=== PATIENT | female | born 1940 | race African-American/Black ===

== ENCOUNTER 2019-06-03 03:31 | Inpatient (IN) | payer MEDICARE, OTHER ==
[2019-06-03] MEDS ORDERED: cefTRIAXone\\ROCEPHIN 2 GM VIAL ONE (04:19)
[2019-06-03] MEDS ORDERED: Azithromycin 500 MG VIAL ONE (04:19)
[2019-06-03 04:40] LABS: Hemoglobin 14.4 g/dL (12.0-16.0); Mean Corpuscular HGB CONC 33.3 g/dL (32.0-36.0); Mean Corpuscular Hemoglobin 28.5 pg (27.0-31.0); Mean Corpuscular Volume 85.7 fL (78.0-98.0); RBC Distribution Width 13.4 % (11.5-14.5); Red Blood Cell (RBC) Count 5.04 mill/uL (4.20-5.40); White Blood Cell (WBC) Count 11.5 thou/uL (4.8-10.8)
[2019-06-03 04:44] LABS: Bacteria/HPF None Seen HPF (None Seen); Bilirubin Negative (Negative); Blood, Urine 2+ (Negative); Clarity Clear (Clear); Glucose, Urine (Dipstick) Normal (Negative); Leukocyte Negative Leu/uL (Negative); Nitrite Negative (Negative); Protein, Urine (Dipstick) 600 mg/dL (Neg-Trace); RBC/HPF 0-3 HPF (0-3); Squamous Epithelial 0-3 HPF (0-3); Urobilinogen Normal mg/dL (Less than 2); WBC/HPF 0-3 HPF (0-3)
[2019-06-03 04:54] LABS: #Eosinphils 0.1 thou/uL (0.0-0.7); #Lymphocytes 0.9 thou/uL (1.20-3.40); #Monocytes 0.7 thou/uL (0.11-0.59); #Neutrophils 9.8 thou/uL (1.40-6.50); %Eosinophils 0.9 % (0.0-10.0); %Lymphocytes 8.2 % (21.0-51.0); %Monocytes 6.1 % (0.0-10.0); %Neutrophils 84.7 % (42.0-75.0); Large Platelets SLIGHT; MDiff Complete? YES; Mean Platelet Volume 12.1 fL (7.4-10.4); Platelet Count 159 thou/uL (130-400); Platelet Morphology Comment Appears Adequate
[2019-06-03 04:57] LABS: ALT (SGPT) 7 U/L (8-55); AST (SGOT) 14 U/L (5-34); Alkaline Phosphatase 112 U/L (40-110); Anion Gap 17 mmol/L (10-20); BUN (Urea Nitrogen) 15 mg/dL (9.8-20.1); Bilirubin, Total 0.6 mg/dL (0.2-1.2); Calc. Creatinine Clearance 0 mL/min (70-130); Carbon Dioxide 22 mmol/L (23-31); Chloride 103 mmol/L (98-107); Estimated GFR-MDRD 43; Globulin 5.1 g/dL (2.4-3.5); Glucose 128 mg/dL (83-110); Potassium 3.7 mmol/L (3.5-5.1); Protein, Total 9.1 g/dL (6.0-8.3); Sodium 138 mmol/L (136-145)
[2019-06-03] MEDS ORDERED: Nitroglycerin 2% Ointment 1 INCH/1 GM Packet ONE (05:19)
[2019-06-03] MEDS ORDERED: Furosemide 40 MG/4 ML VIAL ONE (05:19)
[2019-06-03] MEDS ORDERED: Ondansetron PF 4 MG/2 ML Vial ONE (05:19)
[2019-06-03] MEDS ORDERED: Ondansetron ODT 4 MG TAB PO PRN (05:43)
--- NOTE | 2019-06-03 06:56 | HP ---
PRIMARY CARE PHYSICIAN: Unknown. CHIEF COMPLAINT: Nausea, vomiting, malaise, cough times days. HISTORY OF PRESENT ILLNESS: This is a 79-year-old obese female with past medical history of hypertension and possible CHF, who was brought in to [facility] by family members for several-day history of multifactorial complaints including intractable nausea and vomiting, malaise, cough with some shortness of breath and feelings of unwell, prompting evaluation. The patient reports that her 2-1/2-year-old grandson has been ill recently. She notes some generalized weakness, but denies any headaches, earaches, sore throat, or productive cough. She did not receive her influenza vaccine this season. She denies any anginal complaints. In the emergency room, she was reported to have an initial white blood cell count of 11.5, lactate of 2.8, T-max 100.6, and appropriate oxygenation on room air, but notably desaturating to high 80s while asleep and placed on oxygen nasal cannula. Chest x-ray was read by the ER physician as concerning for pneumonia and possible pulmonary edema. IV fluid bolus was not administered due to concerns for volume overload and the patient was administered IV Lasix, IV Zithromax, IV Rocephin, and topical nitroglycerin paste. Influenza antigen screen was negative. At bedside, the patient is awake and alert. She reports feeling better. Nausea has resolved. She does not feel overwhelmingly short of breath. Continues to have coughing episodes. Much more detailed history cannot be obtained from the patient. The patient's daughter, Katalina was also called via telephone to obtain limited collateral history. PAST MEDICAL HISTORY: Morbid obesity, hypertension, possible CHF. PAST SURGICAL HISTORY: Cholecystectomy and solitary nephrectomy. SOCIAL HISTORY: The patient admits to nicotine dependence, smoking one pack every 3 days. She denies alcohol or illicit drug use. She uses an assistive device for ambulation. Denies any recent falls. ALLERGIES: NONE REPORTED. REVIEW OF SYSTEMS: Pertinent positives as per HPI. Remainder of review of systems negative. MEDICATIONS: Reviewed as per admission medication reconciliation. FAMILY HISTORY: The patient denies any chronic medical comorbidities in family members. PHYSICAL EXAMINATION: VITAL SIGNS: Temperature maximum 100.6, pulse 70s to 80s, sinus rhythm. Blood pressure, initially 198/96 with repeat blood pressure is pending. Oxygen saturation 88% on room air, 94% to 95% on 2 L nasal cannula. Respirations 20-24 breaths, labored. GENERAL APPEARANCE: This is a morbidly obese elderly female who is awake, alert , oriented, lying in awkward lateral decubitus position, speaking in full appropriate sentences. HEENT: Normocephalic, atraumatic. No facial asymmetry. Pupils are equally round. Extraocular muscles are intact. NECK: Supple. CARDIOVASCULAR: S1, S2. Regular rate and rhythm. No harsh murmurs. No reproducible chest wall tenderness to palpation. LUNGS: Limited evaluation due to the patient's body habitus and positioning. There is increased work of breathing noted with tachypnea. Decreased air entry on bilateral anterior auscultation with coarse breath sounds. No expiratory wheezing noted. ABDOMEN: Soft, nontender, nondistended. No peritoneal signs. EXTREMITIES: 1+ bilateral lower extremity pitting edema noted. No cyanosis or deformities noted. SKIN: Warm to touch without rash, pallor, or abrasion. LABORATORY DATA: WBC 11.5, H and H 14.4/43.2, platelets 159. Sodium 138, potassium 3.7, chloride 103, bicarb 22, glucose 128, BUN and creatinine 15/1.42, GFR 43, AST 14, ALT 7. Initial troponin I was negative x1. BNP was elevated at 853.3. Total protein 9.1, albumin 4.0. Influenza antigens reported negative. IMAGING: One-view chest x-ray, await official read, suggestive of pulmonary edema and possible pneumonia. ASSESSMENT: 1. Acute respiratory failure with hypoxia secondary to pneumonia and possible pulmonary edema. The patient will be admitted as inpatient status and placed on oxygen nasal cannula. We will continue empiric treatment for community-acquired pneumonia and IV Lasix 40 mg twice daily and nebulized bronchodilators and supportive therapies with p.r.n. antitussive agents, and monitor for the patient 's symptom improvement. Influenza antigen negative, but we will check RPP for viral etiology. Monitor for overall clinical response and wean oxygen nasal canula as tolerated. 2. Suspected community-acquired pneumonia. Continue IV Rocephin and Zithromax. Check RPP to evaluate for any underlying viral pathogen. 3. Pulmonary edema, possibly cardiogenic etiology. Continue IV Lasix 40 mg b.i.d. and monitor renal function in the setting of known solitary nephrectomy. 4. Chronic kidney disease, 3, baseline secondary to prior nephrectomy. 5. History of nephrectomy. 6. Morbid obesity, unspecified BMI. 7. Nicotine dependence. The patient reviewed will require cessation counseling. 8. Uncontrolled hypertension, possibly due to multifactorial etiologies. The patient was administered nitroglycerin paste in the ER. Monitor serial cardiac biomarkers and blood pressure. 9. Lactic acidosis of unspecified etiology. Possibly secondary to pneumonia or tissue hypoxia. Trend serial lactic acid level. Deep venous thrombosis prophylaxis: Low-molecular weight heparin. Check a.m. labs, 06/04/2019. Code status: Full code. Disposition: The patient will be admitted as inpatient status and placed on telemetry monitoring. Job ID: [id number]
--- NOTE | 2019-06-03 07:39 | RAD ---
XR Chest 1 View Portable History: Vomiting and coughing. Pain. Comparison: Radiograph 2008 Findings: Heart size is enlarged. There is a abnormal round opacity projecting of the left upper lobe expected location anterior left fourth rib. Mild portal venous congestion. The aortic contour is ectatic. Impression: 1. Abnormal high density mass projecting over the left upper lobe expected location anterior left fou rth rib measuring 3.[address] chest recommended. 2. Cardiomegaly and mild pulmonary venous congestion. 3. Mild ectasia descending thoracic aorta.
[2019-06-03 07:49] VITALS: BMI 38.0
[2019-06-03] MEDS: Acetaminophen 325 MG TAB PO PRN ×2 (08:12→19:09)
[2019-06-03] MEDS: Furosemide 40 MG/4 ML VIAL IVP SCH ×2 (08:13→19:14)
[2019-06-03] MEDS: Enoxaparin Sodium 40 MG/0.4 ML SYRINGE SC SCH (08:13)
[2019-06-03] MEDS: Ondansetron PF 4 MG/2 ML Vial IVP PRN (08:13)
[2019-06-03 08:14] LABS: Troponin I Less than 0.010 ng/mL (< 0.028)
[2019-06-03] MEDS: Guaifenesin DM 100-10/5 ML UDCUP PO PRN ×3 (08:16→19:11)
[2019-06-03 10:54] LABS: Troponin I 0.034 ng/mL (< 0.028)
[2019-06-03 11:54] LABS: Lactic Acid 1.7 mmol/L (0.5-2.2)
[2019-06-03] MEDS: hydrALAZINE 25 MG TAB PO SCH ×2 (14:07→19:09)
[2019-06-03 16:33] LABS: Ref Lab Test Ordered RVP; Reference Lab Name LABCORP
[2019-06-03] MEDS: cloNIDine 0.2 MG TAB PO SCH (19:09)
[2019-06-03] MEDS: diphenhydrAMINE 25 MG CAP PO PRN (19:09)
[2019-06-04] MEDS: Guaifenesin DM 100-10/5 ML UDCUP PO PRN ×3 (01:21→16:00)
[2019-06-04] MEDS: Acetaminophen 325 MG TAB PO PRN (04:15)
[2019-06-04 05:01] LABS: Anion Gap 13 mmol/L (10-20); BUN (Urea Nitrogen) 19 mg/dL (9.8-20.1); Calc. Creatinine Clearance 36 mL/min (70-130); Calcium 9.1 mg/dL (7.8-10.44); Carbon Dioxide 27 mmol/L (23-31); Chloride 100 mmol/L (98-107); Estimated GFR-MDRD 34; Glucose 120 mg/dL (83-110); Potassium 3.1 mmol/L (3.5-5.1); Sodium 137 mmol/L (136-145)
[2019-06-04] MEDS: cefTRIAXone\\ROCEPHIN 1 GM in Sodium Chloride 0.9% 100 ML IVPB SCH (05:02)
[2019-06-04] MEDS: Levothyroxine Sodium 75 MCG TAB PO SCH (05:02)
[2019-06-04] MEDS: Aspirin 81 mg Enteric Coated Tablet PO SCH (09:04)
[2019-06-04] MEDS: Enoxaparin Sodium 40 MG/0.4 ML SYRINGE SC SCH (09:04)
[2019-06-04] MEDS: Furosemide 40 MG/4 ML VIAL IVP SCH (09:04)
[2019-06-04] MEDS: Bisoprolol Fumarate 5 MG TAB PO SCH (09:04)
[2019-06-04] MEDS: hydrALAZINE 25 MG TAB PO SCH ×3 (09:05→21:05)
[2019-06-04] MEDS: Losartan 25 MG TAB PO SCH (09:05)
[2019-06-04] MEDS ORDERED: FLU VACC TS2019-20(65YR UP)/PF 180 MCG/0.5 ML SYRINGE IM ONE (10:15)
--- NOTE | 2019-06-04 13:25 | PDOC.HOSPP ---
- Subjective Encounter Date: 06/04/19 Encounter Time: 13:25 Subjective: f/u for acute hypoxic resp failure and suspected PNA receiving Rocephin/ Duonebs. Feels better overall. Appetite ok. - Objective Vital Signs & Weight: Vital Signs (12 hours) Temp Pulse Resp BP Pulse Ox 06/04/19 11:29 99.2 F 74 18 145/65 H 95 06/04/19 10:41 64 16 06/04/19 08:28 98.8 F 75 18 151/69 H 99 06/04/19 07:40 73 16 06/04/19 04:00 101.5 F H 79 18 170/74 H 92 L 06/04/19 02:14 84 16 96 Weight Weight 195 lb I&O: 06/03/19 06/04/19 06/05/19 06:59 06:59 06:59 Intake Total 1240 Output Total 1500 Balance -260 Result Diagrams: 06/03/19 04:04 06/04/19 04:09 Additional Labs: Accuchecks 06/04/19 06/04/19 06/03/19 10:45 05:50 20:12 POC Glucose 198 H 106 190 H Microbiology 06/03/19 03:55 Nasal swab Influenza Types A,B Direct EIA - Final 06/03/19 04:03 Venous blood - Right Hand Blood Culture - Preliminary Specimen has been received and culture in progress. No Growth to date. 06/03/19 04:03 Venous blood - Left Arm Blood Culture - Preliminary Specimen has been received and culture in progress. No Growth to date. Laboratory Tests 06/03/19 06/03/19 06/03/19 04:04 04:04 04:04 Creatinine 1.42 H Lactic Acid Troponin I 0.023 B-Natriuretic Peptide 853.3 H 06/03/19 06/03/19 06/03/19 07:01 08:16 10:18 Creatinine Lactic Acid 1.7 Troponin I Less than 0.010 0.034 H B-Natriuretic Peptide EKG Reviewed by me: Yes (Tele - SR) Hospitalist ROS - Medication Medications: Active Medications Generic Name Dose Route Start Last Admin Trade Name Freq PRN Reason Stop Dose Admin Acetaminophen 650 mg 06/03/19 05:43 06/04/19 04:15 Tylenol PO 650 mg Q4H PRN Administration Headache/Fever/Mild Pain (1-3) Albuterol/Ipratropium 3 ml 06/03/19 06:30 06/04/19 10:41 Duoneb NEB 3 ml [id number] ANTHONY Administration Aspirin 81 mg 06/04/19 09:00 06/04/19 09:04 Ecotrin PO 81 mg DAILY ANTHONY Administration Bisoprolol Fumarate 10 mg 06/04/19 09:00 06/04/19 09:04 Zebeta PO 10 mg DAILY ANTHONY Administration Clonidine 0.2 mg 06/03/19 21:00 06/03/19 19:09 Catapres PO 0.2 mg HS ANTHONY Administration Diphenhydramine HCl 25 mg 06/03/19 18:03 06/03/19 19:09 Benadryl PO 25 mg Q6H PRN Administration Itching & Insomnia Enoxaparin Sodium 40 mg 06/03/19 09:00 06/04/19 09:04 Lovenox SC 40 mg 0900 ANTHONY Administration Furosemide 40 mg 06/03/19 09:00 06/04/19 09:04 Lasix IVP 40 mg BID ANTHONY Administration Guaifenesin/Dextromethorphan 15 ml 06/03/19 05:43 06/04/19 10:42 Robitussin Dm PO 15 ml Q4H PRN Administration Cough Hydralazine HCl 25 mg 06/03/19 15:00 06/04/19 09:05 Apresoline PO 25 mg TID ANTHONY Administration Ceftriaxone Sodium 1 gm/ 100 mls @ 200 mls/hr 06/04/19 06:00 06/04/19 05:02 Sodium Chloride IVPB 100 mls Q24HR ANTHONY Administration Levothyroxine Sodium 75 mcg 06/04/19 06:00 06/04/19 05:02 Synthroid PO 75 mcg 0600 ANTHONY Administration Losartan Potassium 50 mg 06/04/19 09:00 06/04/19 09:05 Cozaar PO 50 mg DAILY ANTHONY Administration Ondansetron HCl 4 mg 06/03/19 05:43 06/03/19 08:13 Zofran IVP 4 mg Q6H PRN Administration Nausea/Vomiting - Exam General Appearance: NAD, awake alert Eye: PERRL, anicteric sclera ENT: normocephalic atraumatic, no oropharyngeal lesions Neck: supple, symmetric, no JVD, no thyromegaly Heart: RRR, no gallops, no rubs, normal peripheral pulses Respiratory - other findings: diminished in bases, occasional wheeze Gastrointestinal: soft, non-tender, non-distended, normal bowel sounds, no palpable masses Extremities: no cyanosis, no clubbing, 1+ LE edema Skin: normal turgor, no lesions Neurological: cranial nerve grossly intact, no new deficit Musculoskeletal: normal tone, generalized weakness Psychiatric: normal affect, A&O x 3 Hosp A/P (1) Acute respiratory failure with hypoxia Code(s): J96.01 - ACUTE RESPIRATORY FAILURE WITH HYPOXIA Status: Acute Plan: Suspect multifactorial given pulmonary edema, tobacco abuse, Duonebs, IV Lasix, O2 supplementation (2) Bacterial pneumonia Code(s): J15.9 - UNSPECIFIED BACTERIAL PNEUMONIA Status: Acute Plan: Suspected gm + cocci, continue Rocephin (3) Pulmonary edema Code(s): J81.1 - CHRONIC PULMONARY EDEMA Status: Acute Plan: Continue Lasix IV, 2D echo pending, O2 PRN (4) CKD (chronic kidney disease), stage III Code(s): N18.3 - CHRONIC KIDNEY DISEASE, STAGE 3 (MODERATE) Status: Chronic Plan: Avoid nephrotoxic meds and limit contrast exposure (5) Hypokalemia Code(s): E87.6 - HYPOKALEMIA Status: Acute Plan: KCL supplementation, serial K+ - Plan plan discussed w/ family, continue antibiotics, PT/OT, aids social worker, respiratory therapy, out of bed/ambulate, DVT proph w/SCDs Stable currently Continue Rocephin IV another 24h Continue Duonebs Decrease Lasix 40mg IV daily OOB with PT 2D echo pending KCL 40meq BID AM lab: BMP, CBC
[2019-06-04] MEDS ORDERED: Potassium Chloride 20 MEQ TAB PO SCH (14:00)
[2019-06-04] MEDS: Potassium Chloride 20 MEQ TAB PO SCH (18:08)
[2019-06-04] MEDS: cloNIDine 0.2 MG TAB PO SCH (21:05)
[2019-06-05] MEDS: Levothyroxine Sodium 75 MCG TAB PO SCH (05:00)
[2019-06-05 05:12] LABS: Anion Gap 12 mmol/L (10-20); BUN (Urea Nitrogen) 26 mg/dL (9.8-20.1); Calc. Creatinine Clearance 38 mL/min (70-130); Calcium 9.1 mg/dL (7.8-10.44); Carbon Dioxide 27 mmol/L (23-31); Chloride 103 mmol/L (98-107); Estimated GFR-MDRD 36; Glucose 99 mg/dL (83-110); Sodium 138 mmol/L (136-145)
[2019-06-05 05:20] LABS: Band 15 % (5-11); Hemoglobin 13.4 g/dL (12.0-16.0); Lymphocytes 18 % (21-51); MDiff Complete? YES; Mean Corpuscular Hemoglobin 27.9 pg (27.0-31.0); Mean Corpuscular Volume 87.2 fL (78.0-98.0); Mean Platelet Volume 12.8 fL (7.4-10.4); Monocytes 6 % (0-10); Neutrophil 61 % (42-75); Platelet Count 102 thou/uL (130-400); Platelet Morphology Comment Appears Decreased; RBC Distribution Width 13.5 % (11.5-14.5); Red Blood Cell (RBC) Count 4.81 mill/uL (4.20-5.40); White Blood Cell (WBC) Count 4.6 thou/uL (4.8-10.8)
[2019-06-05] MEDS: cefTRIAXone\\ROCEPHIN 1 GM in Sodium Chloride 0.9% 100 ML IVPB SCH (05:53)
[2019-06-05] MEDS: Aspirin 81 mg Enteric Coated Tablet PO SCH (08:47)
[2019-06-05] MEDS: Potassium Chloride 20 MEQ TAB PO SCH (08:47)
[2019-06-05] MEDS: Bisoprolol Fumarate 5 MG TAB PO SCH (08:47)
[2019-06-05] MEDS: Losartan 25 MG TAB PO SCH (08:48)
[2019-06-05] MEDS: Enoxaparin Sodium 40 MG/0.4 ML SYRINGE SC SCH (08:48)
[2019-06-05] MEDS: hydrALAZINE 25 MG TAB PO SCH ×3 (08:48→20:39)
[2019-06-05] MEDS ORDERED: Furosemide 40 MG/4 ML VIAL IVP SCH (09:00)
[2019-06-05] MEDS ORDERED: Senokot S 8.6-50 MG TAB PO SCH (11:00)
--- NOTE | 2019-06-05 11:15 | PDOC.HOSPP ---
- Subjective Encounter Date: 06/05/19 Encounter Time: 11:10 Subjective: f/u for resp failure with PNA and pulmonary edema receiving Rocephin and Lasix. c/o constipation. - Objective Vital Signs & Weight: Vital Signs (12 hours) Temp Pulse Resp BP Pulse Ox 06/05/19 11:05 71 18 06/05/19 07:32 98.5 F 69 18 145/65 H 99 06/05/19 07:25 66 15 06/05/19 03:20 99.5 F 75 22 H 124/59 L 94 L 06/05/19 02:22 71 20 91 L 06/04/19 23:40 99.4 F 77 18 129/62 95 Weight Weight 197 lb 14.4 oz I&O: 06/04/19 06/05/19 06/06/19 06:59 06:59 06:59 Intake Total 1240 870 Output Total 1500 700 Balance -260 170 Result Diagrams: 06/05/19 04:30 06/05/19 04:30 Additional Labs: Accuchecks 06/04/19 06/04/19 16:54 10:45 POC Glucose 113 H 198 H Microbiology 06/03/19 03:55 Nasal swab Influenza Types A,B Direct EIA - Final 06/03/19 04:03 Venous blood - Right Hand Blood Culture - Preliminary Specimen has been received and culture in progress. No Growth to date. 06/03/19 04:03 Venous blood - Left Arm Blood Culture - Preliminary Specimen has been received and culture in progress. No Growth to date. Laboratory Tests 06/03/19 06/03/19 06/03/19 04:04 04:04 04:04 Creatinine 1.42 H Lactic Acid Troponin I 0.023 B-Natriuretic Peptide 853.3 H 06/03/19 06/03/19 06/03/19 07:01 08:16 10:18 Creatinine Lactic Acid 1.7 Troponin I Less than 0.010 0.034 H B-Natriuretic Peptide Radiology Reviewed by me: Yes (Echo - EF 55-60%, severe TR/MR, mod LAE) EKG Reviewed by me: Yes (Tele - SR) Hospitalist ROS - Medication Medications: Active Medications Generic Name Dose Route Start Last Admin Trade Name Freq PRN Reason Stop Dose Admin Acetaminophen 650 mg 06/03/19 05:43 06/04/19 04:15 Tylenol PO 650 mg Q4H PRN Administration Headache/Fever/Mild Pain (1-3) Albuterol/Ipratropium 3 ml 06/03/19 06:30 06/05/19 11:05 Duoneb NEB 3 ml [id number] ANTHONY Administration Aspirin 81 mg 06/04/19 09:00 06/05/19 08:47 Ecotrin PO 81 mg DAILY ANTHONY Administration Bisoprolol Fumarate 10 mg 06/04/19 09:00 06/05/19 08:47 Zebeta PO 10 mg DAILY ANTHONY Administration Clonidine 0.2 mg 06/03/19 21:00 06/04/19 21:05 Catapres PO 0.2 mg HS ANTHONY Administration Diphenhydramine HCl 25 mg 06/03/19 18:03 06/03/19 19:09 Benadryl PO 25 mg Q6H PRN Administration Itching & Insomnia Enoxaparin Sodium 40 mg 06/03/19 09:00 06/05/19 08:48 Lovenox SC 40 mg 0900 ANTHONY Administration Furosemide 40 mg 06/05/19 09:00 06/05/19 08:48 Lasix IVP 40 mg DAILY ANTHONY Administration Guaifenesin/Dextromethorphan 15 ml 06/03/19 05:43 06/04/19 16:00 Robitussin Dm PO 15 ml Q4H PRN Administration Cough Hydralazine HCl 25 mg 06/03/19 15:00 06/05/19 08:48 Apresoline PO 25 mg TID ANTHONY Administration Ceftriaxone Sodium 1 gm/ 100 mls @ 200 mls/hr 06/04/19 06:00 06/05/19 05:53 Sodium Chloride IVPB 100 mls Q24HR ANTHONY Administration Levothyroxine Sodium 75 mcg 06/04/19 06:00 06/05/19 05:00 Synthroid PO 75 mcg 0600 ANTHONY Administration Losartan Potassium 50 mg 06/04/19 09:00 06/05/19 08:48 Cozaar PO 50 mg DAILY ANTHONY Administration Ondansetron HCl 4 mg 06/03/19 05:43 06/03/19 08:13 Zofran IVP 4 mg Q6H PRN Administration Nausea/Vomiting Potassium Chloride 40 meq 06/04/19 17:00 06/05/19 08:47 K-Dur PO 40 meq BID-WM ANTHONY Administration - Exam General Appearance: NAD, awake alert Eye: PERRL, anicteric sclera ENT: normocephalic atraumatic, no oropharyngeal lesions Neck: supple, symmetric, no JVD, no thyromegaly Heart: RRR, no gallops, no rubs, normal peripheral pulses Respiratory: normal chest expansion, no tachypnea Respiratory - other findings: diminished in bases Gastrointestinal: soft, non-tender, non-distended, normal bowel sounds, no palpable masses Extremities: no cyanosis, no clubbing, no edema Skin: normal turgor, no lesions Neurological: cranial nerve grossly intact, no new deficit Musculoskeletal: normal tone, normal strength, no muscle wasting Psychiatric: normal affect, A&O x 3 Hosp A/P (1) Acute respiratory failure with hypoxia Code(s): J96.01 - ACUTE RESPIRATORY FAILURE WITH HYPOXIA Status: Acute Plan: Improved, continue pulmonary support, start Levaquin 500mg po daily, d/c Rocephin (2) Bacterial pneumonia Code(s): J15.9 - UNSPECIFIED BACTERIAL PNEUMONIA Status: Acute Plan: D/C Rocephin, start Levaquin 500mg po daily (3) Pulmonary edema Code(s): J81.1 - CHRONIC PULMONARY EDEMA Status: Acute Plan: Resolving, convert Lasix 40mg po daily, EF 55-60%, diastolic dysfunction (4) CKD (chronic kidney disease), stage III Code(s): N18.3 - CHRONIC KIDNEY DISEASE, STAGE 3 (MODERATE) Status: Chronic (5) Hypokalemia Code(s): E87.6 - HYPOKALEMIA Status: Acute Plan: Resolved, decrease KCL 40meq daily - Plan plan discussed w/ family, continue antibiotics, PT/OT, social security specialist, respiratory therapy, out of bed/ambulate, DVT proph w/SCDs Stable currently D/C Rocephin Start Levaquin 500mg po daily Continue Duonebs Change Lasix 40mg po daily OOB with PT KCL 40meq po daily CT chest today with ? MEGGAN mass AM lab: BMP, CBC
--- NOTE | 2019-06-05 12:31 | CT ---
CT OF THE CHEST WITH IV CONTRAST INDICATION: Left upper lobe lung mass COMPARISON: Chest radiograph dated June 03, 2019 FINDINGS: CHEST: Lungs: Corresponding to the radiographic abnormality identified on the comparison chest radiograph is a 2.9 and 1.2 cm pulmonary nodules and the region of the upper lingula on image 21 of series 3. This is present and superimposed on areas of airspace consolidation involving both lower lobes and chika th upper lobe suspicious for multifocal. Pleural space: No effusion. Mediastinum: There is an enlarged pretracheal measuring 1 cm. There are mildly prominent left tracheo bronchial lymph node measuring 9 mm on image 20 of series 2. Mildly prominent prevascular. Upper abdomen:There is a 2.6 cm nodule involving the left adrenal gland. Numerous surgical clips are seen within the right renal bed likely related to right nephrectomy. The gallbladder surgically absent. Osseous structures: No acute osseous abnormality. No destructive osteolytic or osteoblastic lesion i s identified. There is scattered degenerative and osteoarthritic changes. Soft tissues:Normal. IMPRESSION: 1. Findings suspicious for multifocal pneumonia. 2. 2 separate pulmonary nodules are seen within the lingula corresponding radiographic abnormality. D ifferential considerations include rounded pneumonia, rounded atelectasis or malignancy. Follow-up CT following appropriate therapy (2-4 weeks) is recommended to document resolution. 3. Mediastinal enlarged lymph nodes. This may be reactive or malignant in nature. Follow-up is recomm ended. 4. 2.6 cm left adrenal nodule. This is not fully characterized. Findings may reflect a large left adr enal adenoma versus metastatic disease. This may be followed on the CT evaluation recommended above.
[2019-06-05] MEDS ORDERED: Iopamidol 370 76% 50 ML VIAL FS ONE (13:38)
[2019-06-05] MEDS: diphenhydrAMINE 25 MG CAP PO PRN (20:40)
[2019-06-05] MEDS: cloNIDine 0.2 MG TAB PO SCH (20:40)
[2019-06-06 04:46] LABS: Band 1 % (5-11); Hemoglobin 13.6 g/dL (12.0-16.0); Lymphocytes 22 % (21-51); MDiff Complete? YES; Mean Corpuscular HGB CONC 31.9 g/dL (32.0-36.0); Mean Corpuscular Hemoglobin 27.2 pg (27.0-31.0); Mean Corpuscular Volume 85.4 fL (78.0-98.0); Mean Platelet Volume 12.7 fL (7.4-10.4); Monocytes 4 % (0-10); Neutrophil 73 % (42-75); Platelet Count 108 thou/uL (130-400); Platelet Morphology Comment Appears Decreased; RBC Distribution Width 13.6 % (11.5-14.5); Red Blood Cell (RBC) Count 4.99 mill/uL (4.20-5.40); White Blood Cell (WBC) Count 5.1 thou/uL (4.8-10.8)
[2019-06-06] MEDS: Levothyroxine Sodium 75 MCG TAB PO SCH (05:00)
[2019-06-06 05:04] LABS: Anion Gap 15 mmol/L (10-20); BUN (Urea Nitrogen) 28 mg/dL (9.8-20.1); Calc. Creatinine Clearance 40 mL/min (70-130); Calcium 8.9 mg/dL (7.8-10.44); Carbon Dioxide 24 mmol/L (23-31); Chloride 105 mmol/L (98-107); Estimated GFR-MDRD 38; Glucose 97 mg/dL (83-110); Potassium 4.7 mmol/L (3.5-5.1); Sodium 139 mmol/L (136-145)
[2019-06-06] MEDS: Furosemide 40 MG TAB PO SCH (07:40)
[2019-06-06] MEDS ORDERED: Potassium Chloride 20 MEQ TAB PO SCH (09:00)
[2019-06-06] MEDS: Aspirin 81 mg Enteric Coated Tablet PO SCH (09:07)
[2019-06-06] MEDS: hydrALAZINE 25 MG TAB PO SCH ×3 (09:07→20:09)
[2019-06-06] MEDS: Bisoprolol Fumarate 5 MG TAB PO SCH (09:07)
[2019-06-06] MEDS: Losartan 25 MG TAB PO SCH (09:08)
--- NOTE | 2019-06-06 11:32 | PDOC.HOSPP ---
- Subjective Encounter Date: 06/06/19 Encounter Time: 11:25 Subjective: f/u for bilat PNA and pulmonary edema. Overall feeling better and less SOB. Still coughing with Duonebs but much improved. - Objective Vital Signs & Weight: Vital Signs (12 hours) Temp Pulse Resp BP Pulse Ox 06/06/19 07:37 97.9 F 80 18 131/63 95 06/06/19 07:06 79 16 93 L 06/06/19 04:52 77 18 115/57 L 93 L 06/06/19 03:19 99.0 F 78 14 116/48 L 92 L 06/06/19 01:45 72 16 92 L 06/05/19 23:45 70 18 93 L Weight Weight 197 lb 3.2 oz I&O: 06/05/19 06/06/19 06/07/19 06:59 06:59 06:59 Intake Total 870 1120 Output Total 700 1050 Balance 170 70 Result Diagrams: 06/06/19 03:59 06/06/19 03:59 Additional Labs: Microbiology 06/03/19 03:55 Nasal swab Influenza Types A,B Direct EIA - Final 06/03/19 04:03 Venous blood - Right Hand Blood Culture - Preliminary Specimen has been received and culture in progress. No Growth to date. 06/03/19 04:03 Venous blood - Left Arm Blood Culture - Preliminary Specimen has been received and culture in progress. No Growth to date. Laboratory Tests 06/03/19 06/03/19 06/03/19 04:04 04:04 04:04 Band Neuts % (Manual) BUN Creatinine 1.42 H Lactic Acid Troponin I 0.023 B-Natriuretic Peptide 853.3 H 06/03/19 06/03/19 06/03/19 07:01 08:16 10:18 Band Neuts % (Manual) BUN Creatinine Lactic Acid 1.7 Troponin I Less than 0.010 0.034 H B-Natriuretic Peptide 06/05/19 06/05/19 06/06/19 04:30 04:30 03:59 Band Neuts % (Manual) 15 H 1 L BUN 26 H Creatinine 1.68 H Lactic Acid Troponin I B-Natriuretic Peptide Radiology Reviewed by me: Yes (CT chest - ?round atelectasis vs pneumonia vs mass) EKG Reviewed by me: Yes (Tele - SR) Hospitalist ROS - Medication Medications: Active Medications Generic Name Dose Route Start Last Admin Trade Name Freq PRN Reason Stop Dose Admin Acetaminophen 650 mg 06/03/19 05:43 06/04/19 04:15 Tylenol PO 650 mg Q4H PRN Administration Headache/Fever/Mild Pain (1-3) Albuterol/Ipratropium 3 ml 06/03/19 06:30 06/06/19 10:07 Duoneb NEB Not Given [id number] ANTHONY Aspirin 81 mg 06/04/19 09:00 06/06/19 09:07 Ecotrin PO 81 mg DAILY ANTHONY Administration Bisoprolol Fumarate 10 mg 06/04/19 09:00 06/06/19 09:07 Zebeta PO 10 mg DAILY ANTHONY Administration Clonidine 0.2 mg 06/03/19 21:00 06/05/19 20:40 Catapres PO 0.2 mg HS ANTHONY Administration Diphenhydramine HCl 25 mg 06/03/19 18:03 06/05/19 20:40 Benadryl PO 25 mg Q6H PRN Administration Itching & Insomnia Furosemide 40 mg 06/06/19 07:30 06/06/19 07:40 Lasix PO 40 mg DAILY-AC ANTHONY Administration Guaifenesin/Dextromethorphan 15 ml 06/03/19 05:43 06/04/19 16:00 Robitussin Dm PO 15 ml Q4H PRN Administration Cough Hydralazine HCl 25 mg 06/03/19 15:00 06/06/19 09:07 Apresoline PO 25 mg TID ANTHONY Administration Levofloxacin 500 mg 06/06/19 06:00 06/06/19 05:00 Levaquin PO 500 mg 0600 ANTHONY Administration Levothyroxine Sodium 75 mcg 06/04/19 06:00 06/06/19 05:00 Synthroid PO 75 mcg 0600 ANTHONY Administration Losartan Potassium 50 mg 06/04/19 09:00 06/06/19 09:08 Cozaar PO 50 mg DAILY ANTHONY Administration Ondansetron HCl 4 mg 06/03/19 05:43 06/03/19 08:13 Zofran IVP 4 mg Q6H PRN Administration Nausea/Vomiting Potassium Chloride 40 meq 06/06/19 09:00 06/06/19 09:08 K-Dur PO 40 meq DAILY ANTHONY Administration - Exam General Appearance: NAD, awake alert Eye: PERRL, anicteric sclera ENT: normocephalic atraumatic, no oropharyngeal lesions Neck: supple, symmetric, no JVD, no thyromegaly Heart: RRR, no gallops, no rubs, normal peripheral pulses Respiratory - other findings: diminished in bases, occasional rhonchi Gastrointestinal: soft, non-tender, non-distended, normal bowel sounds Extremities: no cyanosis, no clubbing, no edema Skin: normal turgor, no lesions Neurological: cranial nerve grossly intact, no new deficit Musculoskeletal: normal tone, generalized weakness Psychiatric: normal affect, A&O x 3 Hosp A/P (1) Acute respiratory failure with hypoxia Code(s): J96.01 - ACUTE RESPIRATORY FAILURE WITH HYPOXIA Status: Acute Plan: Improved, O2 prn, continue Duonebs, see below for mgmt (2) Bacterial pneumonia Code(s): J15.9 - UNSPECIFIED BACTERIAL PNEUMONIA Status: Acute Plan: Appears multifocal on CT imaging, MEGGAN mass ? round atelectasis vs infection vs mass. Recommend repeat CT imaging in 1-2 months after completion of abx coverage (3) Pulmonary edema Code(s): J81.1 - CHRONIC PULMONARY EDEMA Status: Acute Plan: Improved, continue Lasix 40mg po daily (4) CKD (chronic kidney disease), stage III Code(s): N18.3 - CHRONIC KIDNEY DISEASE, STAGE 3 (MODERATE) Status: Chronic (5) Hypokalemia Code(s): E87.6 - HYPOKALEMIA Status: Acute Plan: Resolved, d/c KCL - Plan plan discussed w/ family, continue antibiotics, PT/OT, social media analyst, respiratory therapy, out of bed/ambulate, DVT proph w/SCDs Stable currently D/C Rocephin Continue Levaquin 500mg po daily Continue Duonebs Change Lasix 40mg po daily OOB with PT Likely home in 48h with HH/PT
[2019-06-06] MEDS: cloNIDine 0.2 MG TAB PO SCH (20:10)
[2019-06-06] MEDS: diphenhydrAMINE 25 MG CAP PO PRN (21:36)
[2019-06-07] MEDS: Levothyroxine Sodium 75 MCG TAB PO SCH (05:20)
[2019-06-07] MEDS: Furosemide 40 MG TAB PO SCH (08:41)
[2019-06-07] MEDS: Bisoprolol Fumarate 5 MG TAB PO SCH (08:41)
[2019-06-07] MEDS: Aspirin 81 mg Enteric Coated Tablet PO SCH (08:42)
[2019-06-07] MEDS: hydrALAZINE 25 MG TAB PO SCH ×3 (08:42→20:32)
[2019-06-07] MEDS: Losartan 25 MG TAB PO SCH (08:42)
--- NOTE | 2019-06-07 14:00 | PDOC.HOSPP ---
- Subjective Subjective: Feeling much better overall. - Objective Vital Signs & Weight: Vital Signs (12 hours) Temp Pulse Resp BP BP Pulse Ox 06/07/19 12:00 97.6 F 60 18 151/67 H 97 06/07/19 08:09 97.6 F 69 18 140/71 96 06/07/19 07:30 71 18 96 06/07/19 04:00 97.7 F 72 20 146/87 H 93 L 06/07/19 03:11 65 16 Weight Weight 199 lb 11.2 oz I&O: 06/06/19 06/07/19 06/08/19 06:59 06:59 06:59 Intake Total 1120 1470 Output Total 1050 1325 Balance 70 145 Result Diagrams: 06/06/19 03:59 06/06/19 03:59 Hospitalist ROS - Medication Medications: Active Medications Generic Name Dose Route Start Last Admin Trade Name Freq PRN Reason Stop Dose Admin Acetaminophen 650 mg 06/03/19 05:43 06/04/19 04:15 Tylenol PO 650 mg Q4H PRN Administration Headache/Fever/Mild Pain (1-3) Aspirin 81 mg 06/04/19 09:00 06/07/19 08:42 Ecotrin PO 81 mg DAILY ANTHONY Administration Bisoprolol Fumarate 10 mg 06/04/19 09:00 06/07/19 08:41 Zebeta PO 10 mg DAILY ANTHONY Administration Clonidine 0.2 mg 06/03/19 21:00 06/06/19 20:10 Catapres PO 0.2 mg HS ANTHONY Administration Diphenhydramine HCl 25 mg 06/03/19 18:03 06/06/19 21:36 Benadryl PO 25 mg Q6H PRN Administration Itching & Insomnia Furosemide 40 mg 06/06/19 07:30 06/07/19 08:41 Lasix PO 40 mg DAILY-AC ANTHONY Administration Guaifenesin/Dextromethorphan 15 ml 06/03/19 05:43 06/04/19 16:00 Robitussin Dm PO 15 ml Q4H PRN Administration Cough Hydralazine HCl 25 mg 06/03/19 15:00 06/07/19 08:42 Apresoline PO 25 mg TID ANTHONY Administration Levofloxacin 500 mg 06/06/19 06:00 06/07/19 05:20 Levaquin PO 500 mg 0600 ANTHONY Administration Levothyroxine Sodium 75 mcg 06/04/19 06:00 06/07/19 05:20 Synthroid PO 75 mcg 0600 ANTHONY Administration Losartan Potassium 50 mg 06/04/19 09:00 06/07/19 08:42 Cozaar PO 50 mg DAILY ANTHONY Administration Ondansetron HCl 4 mg 06/03/19 05:43 06/03/19 08:13 Zofran IVP 4 mg Q6H PRN Administration Nausea/Vomiting - Exam General Appearance: NAD, awake alert Respiratory: rales Gastrointestinal: soft, non-tender, non-distended, normal bowel sounds, no palpable masses, no hepatomegaly, no splenomegaly, no bruit Extremities: no cyanosis, no clubbing, no edema Skin: normal turgor Psychiatric: normal affect, normal behavior Hosp A/P (1) H1N1 influenza with pneumonia Code(s): J10.00 - FLU DUE TO OTH IDENT FLU VIRUS W UNSP TYPE OF PNEUMONIA Status: Acute (2) Severe mitral regurgitation Code(s): I34.0 - NONRHEUMATIC MITRAL (VALVE) INSUFFICIENCY Status: Acute (3) Severe tricuspid regurgitation Code(s): I07.1 - RHEUMATIC TRICUSPID INSUFFICIENCY Status: Acute (4) Acute respiratory failure with hypoxia Code(s): J96.01 - ACUTE RESPIRATORY FAILURE WITH HYPOXIA Status: Acute (5) Bacterial pneumonia Code(s): J15.9 - UNSPECIFIED BACTERIAL PNEUMONIA Status: Acute (6) Hypokalemia Code(s): E87.6 - HYPOKALEMIA Status: Acute (7) Pulmonary edema Code(s): J81.1 - CHRONIC PULMONARY EDEMA Status: Acute (8) CKD (chronic kidney disease), stage III Code(s): N18.3 - CHRONIC KIDNEY DISEASE, STAGE 3 (MODERATE) Status: Chronic (9) Lung nodule, multiple Status: Acute - Plan Just received results of the viral panel this morning. Positive for H1N1. Too late to benefit from tx. Will isolate per policy. Will need follow up imaging for the lung nodules. Had mild pulm edema on initial CXR and elevated BNP. ECHO with preserved EF with severe TR, MR. Appears to be much improved. Will consult Cardiology to ensure appropriate medical regimen on DC. Anticipate DC tomorrow. Will need HH.
--- NOTE | 2019-06-07 17:06 | CON ---
DATE OF CONSULTATION: 06/07/2019 REASON FOR CONSULTATION: Mitral regurgitation. PRIMARY SCIENTIFIC PROGRAMMER ANALYST: Aamir Persaud MD HISTORY OF PRESENT ILLNESS: Ms. Reid is a very pleasant 79-year-old female, who comes to the hospital for nausea, vomiting, and malaise. She was worked up and diagnosed with influenza type H1N1. She has been treating appropriately for this. She is doing much better now. An echocardiogram was performed about 3 days ago and was found to have an EF of 55% to 60% with severe mitral regurgitation and severe tricuspid regurgitation. Cardiology is being consulted for medical management of this. On my evaluation, Ms. Reid states that her breathing is much better than what it was when she first came in. She has been urinating quite a bit. She feels much better. Plan is to send her home tomorrow. PAST MEDICAL HISTORY: 1. Hypertension. 2. Diastolic heart failure in the past. 3. Obesity. PAST SURGICAL HISTORY: 1. Cholecystectomy. 2. Nephrectomy. SOCIAL HISTORY: Smokes a pack every three days. No alcohol or drug use. ALLERGIES: NO KNOWN DRUG ALLERGIES. OUTPATIENT MEDICATIONS: 1. Dextromethorphan p.r.n. 2. Synthroid 75 mcg a day. 3. Bisoprolol 10 mg a day. 4. Quetiapine 25 mg at bedtime. 5. Clonidine 0.2 mg at bedtime. 6. Hydralazine 25 mg t.i.d. 7. Irbesartan 150 mg a day. 8. Furosemide 20 mg b.i.d. 9. Aspirin 81 a day. FAMILY HISTORY: No early coronary artery disease. REVIEW OF SYSTEMS: A 12-point review of systems was done and is all negative unless stated in the history of present illness. PHYSICAL EXAMINATION: VITAL SIGNS: Temperature 97.7, pulse 60, respiratory rate 16, saturation 97% on room air, and blood pressure 140/71. GENERAL: Awake, alert, and oriented x3. No distress. HEENT: Normocephalic and atraumatic. NECK: Supple. LUNGS: Clear. CARDIOVASCULAR: S1 and S2. There is a holosystolic murmur at the apex. There is a grade 2/6 systolic murmur at the right upper sternal border. ABDOMEN: Soft. Positive bowel sounds. EXTREMITIES: No edema. SKIN: Warm and dry. LABORATORY DATA: Laboratory work was reviewed. White count was 11 on admission, down to 5.1, hemoglobin of 13, hematocrit 42, and platelet count of 108. Chemistries, creatinine was 1.75 on admission down to 1.60 and potassium is 4.7. UA is unremarkable. EKG was unremarkable. Echocardiogram was reviewed, EF of 55% to 60% with severe MR and severe TR. CT scan of the chest showed multifocal pneumonia, pulmonary nodules, mediastinal lymphadenopathy, and adrenal nodule. ASSESSMENT: 1. Severe MR. 2. Severe TR. 3. Influenza H1N1. 4. Acute on chronic diastolic heart failure. PLAN: 1. She seems very close to being euvolemic. More than likely her level of regurgitation is causing this level of decompensation, which is significantly better and this was all tipped over by her influenza H1N1. I would continue the beta kamlesh and FOREST inhibitor, try to control blood for a little bit better. It seems like her blood pressure has been mostly well controlled in the 120s to 140s. I would increase her Lasix to 40 mg in the morning and none in the afternoon unless she gains weight. 2. Would plan on following up with her in about 4 to 6 weeks in the office. At which point, I think a repeat echocardiogram will be scheduled to see if these valves have unchanged. The echo was done during her acute illness. At which point, she had decompensated diastolic heart function, which may make the regurgitation be look worse than in a normal flow state. Depending on that re-evaluation, we will decide if she needs surgery for her mitral valve or tricuspid valve. Thank you for letting us to participate in the care of your patient. We will follow. Job ID: [id number]
[2019-06-07] MEDS: cloNIDine 0.2 MG TAB PO SCH (20:31)
[2019-06-08] MEDS: Levothyroxine Sodium 75 MCG TAB PO SCH (04:11)
[2019-06-08] MEDS: Ondansetron PF 4 MG/2 ML Vial IVP PRN (04:11)
[2019-06-08] MEDS: Acetaminophen 325 MG TAB PO PRN (07:59)
[2019-06-08] MEDS: hydrALAZINE 25 MG TAB PO SCH ×3 (07:59→22:10)
[2019-06-08] MEDS: diphenhydrAMINE 25 MG CAP PO PRN (07:59)
[2019-06-08] MEDS: Aspirin 81 mg Enteric Coated Tablet PO SCH (07:59)
[2019-06-08] MEDS: Bisoprolol Fumarate 5 MG TAB PO SCH (07:59)
[2019-06-08] MEDS: Losartan 25 MG TAB PO SCH (08:00)
[2019-06-08] MEDS: Furosemide 40 MG TAB PO SCH (08:00)
--- NOTE | 2019-06-08 16:21 | PDOC.CPN ---
- Subjective Date: 06/08/19 Time: 16:19 Interval history: She is doing well. No new issues. - Review of Systems General: denies: fever/chills, weight/appetite/sleep changes, night sweats, fatigue Respiratory: denies: cough, congestion, shortness of breath, exercise intolerance Cardiovascular: denies: chest pain, palpitation, edema, paroxysmal nocturnal dyspnea, orthopnea Gastrointestinal: denies: nausea, vomiting, diarrhea, constipation, abd pain, GI bleeding Musculoskeletal: denies: pain, tenderness, stiffness, swelling, arthritis/ arthralgias Neurological: denies: numbness, syncope, seizure, weakness - Objective Allergies/Adverse Reactions: Allergies Allergy/AdvReac Type Severity Reaction Status Date / Time No Known Allergies Allergy Verified 06/03/19 08:30 Visit Medications: Current Medications Acetaminophen (Tylenol) 650 mg PO Q4H PRN PRN Reason: Headache/Fever/Mild Pain (1-3) Last Admin: 06/08/19 07:59 Dose: 650 mg Albuterol/Ipratropium (Duoneb) 3 ml NEB Q4H PRN PRN Reason: SOB &/or Wheezing Aspirin (Ecotrin) 81 mg PO DAILY [facility] Last Admin: 06/08/19 07:59 Dose: 81 mg Bisoprolol Fumarate (Zebeta) 10 mg PO DAILY [facility] Last Admin: 06/08/19 07:59 Dose: 10 mg Clonidine (Catapres) 0.2 mg PO HS [facility] Last Admin: 06/07/19 20:31 Dose: 0.2 mg Diphenhydramine HCl (Benadryl) 25 mg PO Q6H PRN PRN Reason: Itching & Insomnia Last Admin: 06/08/19 07:59 Dose: 25 mg Furosemide (Lasix) 40 mg PO DAILY-AC [facility] Last Admin: 06/08/19 08:00 Dose: 40 mg Guaifenesin/Dextromethorphan (Robitussin Dm) 15 ml PO Q4H PRN PRN Reason: Cough Last Admin: 06/04/19 16:00 Dose: 15 ml Hydralazine HCl (Apresoline) 25 mg PO TID [facility] Last Admin: 06/08/19 15:47 Dose: 25 mg Levofloxacin (Levaquin) 500 mg PO 0600 [facility] Last Admin: 06/08/19 04:11 Dose: 500 mg Levothyroxine Sodium (Synthroid) 75 mcg PO 0600 [facility] Last Admin: 06/08/19 04:11 Dose: 75 mcg Losartan Potassium (Cozaar) 50 mg PO DAILY [facility] Last Admin: 06/08/19 08:00 Dose: 50 mg Ondansetron HCl (Zofran Odt) 4 mg PO Q6H PRN PRN Reason: Nausea/Vomiting Ondansetron HCl (Zofran) 4 mg IVP Q6H PRN PRN Reason: Nausea/Vomiting Last Admin: 06/08/19 04:11 Dose: 4 mg Quetiapine Fumarate (Seroquel) 25 mg PO HSPRN PRN PRN Reason: Anxiety Vital Signs & Weight: Vital Signs Temp Pulse Resp BP Pulse Ox 06/08/19 15:44 97.9 F 62 18 166/83 H 97 06/08/19 11:40 98.2 F 52 L 18 131/63 96 06/08/19 07:00 98.4 F 61 18 142/69 H 95 Weight 200 lb - Physical Exam General: alert & oriented x3 HEENT: mucus membranes moist Neck: supple neck Cardiac: regular rate and rhythm Lungs: normal breath sounds Neuro: grossly intact Abdomen: active bowel sounds Extremities: no edema Skin: clear Musculoskeletal: no pain - Labs Result Diagrams: 06/06/19 03:59 06/06/19 03:59 Troponin/CKMB Troponin I 0.034 ng/mL (< 0.028) H 06/03/19 10:18 - Telemetry Sinus rhythms and dysrhythmias: sinus rhythm - Assessment/Plan Assessment/Plan: 1. Severe MR 2. Severe TR 3. Influenza H1N1 4. Acute on chronic diastolic CHF PLAN: - May discharge any time from cardiac perspective on current doses. - Follow up in the office in 1-2 months. - Will sign off. Please call with any questions.
[2019-06-08] MEDS: cloNIDine 0.2 MG TAB PO SCH (22:11)
[2019-06-09] MEDS ORDERED: Polyethylene Glycol 3350 17 GM Packet PO PRN (04:16)
[2019-06-09] MEDS: Levothyroxine Sodium 75 MCG TAB PO SCH (07:12)
[2019-06-09] MEDS ORDERED: Sodium Chloride 0.9% 10 ML ONE (08:22)
[2019-06-09] MEDS: Furosemide 40 MG TAB PO SCH (08:33)
[2019-06-09] MEDS: hydrALAZINE 25 MG TAB PO SCH ×2 (08:33→16:00)
[2019-06-09] MEDS: Bisoprolol Fumarate 5 MG TAB PO SCH (08:33)
[2019-06-09] MEDS: Losartan 25 MG TAB PO SCH (08:33)
[2019-06-09] MEDS: Aspirin 81 mg Enteric Coated Tablet PO SCH (08:33)
[2019-06-09] MEDS ORDERED: Amlodipine 5 MG TAB PO SCH (09:00)
--- NOTE | 2019-06-09 09:16 | PDOC.HOSPP ---
- Subjective Encounter Date: 06/08/19 Subjective: Patient is feeling well. She denies SOB. She was off her oxygen, but got up to shower and had a little SOB so the oxygen was replaced. She says this is normal for her to have a little SOB with exertion and she is at her baseline. - Objective Vital Signs & Weight: Vital Signs (12 hours) Temp Pulse Resp BP BP Pulse Ox 06/09/19 08:33 67 06/09/19 08:32 67 06/09/19 08:26 97.7 F 67 16 133/60 96 06/09/19 04:00 97.6 F 56 L 18 135/61 97 06/08/19 22:11 172/75 H 06/08/19 22:10 55 L 172/75 H Weight Weight 195 lb 4.8 oz I&O: 06/08/19 06/09/19 06/10/19 06:59 06:59 06:59 Intake Total 1440 1250 Output Total 800 1400 Balance 640 -150 Result Diagrams: 06/06/19 03:59 06/06/19 03:59 Hospitalist ROS - Medication Medications: Active Medications Generic Name Dose Route Start Last Admin Trade Name Freq PRN Reason Stop Dose Admin Acetaminophen 650 mg 06/03/19 05:43 06/08/19 07:59 Tylenol PO 650 mg Q4H PRN Administration Headache/Fever/Mild Pain (1-3) Amlodipine Besylate 2.5 mg 06/09/19 09:00 06/09/19 08:32 Norvasc PO 2.5 mg DAILY ANTHONY Administration Aspirin 81 mg 06/04/19 09:00 06/09/19 08:33 Ecotrin PO 81 mg DAILY ANTHONY Administration Bisoprolol Fumarate 10 mg 06/04/19 09:00 06/09/19 08:33 Zebeta PO 10 mg DAILY ANTHONY Administration Clonidine 0.2 mg 06/03/19 21:00 06/08/19 22:11 Catapres PO 0.2 mg HS ANTHONY Administration Diphenhydramine HCl 25 mg 06/03/19 18:03 06/08/19 07:59 Benadryl PO 25 mg Q6H PRN Administration Itching & Insomnia Furosemide 40 mg 06/06/19 07:30 06/09/19 08:33 Lasix PO 40 mg DAILY-AC ANTHONY Administration Guaifenesin/Dextromethorphan 15 ml 06/03/19 05:43 06/04/19 16:00 Robitussin Dm PO 15 ml Q4H PRN Administration Cough Hydralazine HCl 25 mg 06/03/19 15:00 06/09/19 08:33 Apresoline PO 25 mg TID ANTHONY Administration Levofloxacin 500 mg 06/06/19 06:00 06/09/19 07:12 Levaquin PO 500 mg 0600 ANTHONY Administration Levothyroxine Sodium 75 mcg 06/04/19 06:00 06/09/19 07:12 Synthroid PO 75 mcg 0600 ANTHONY Administration Losartan Potassium 50 mg 06/04/19 09:00 06/09/19 08:33 Cozaar PO 50 mg DAILY ANTHONY Administration Ondansetron HCl 4 mg 06/03/19 05:43 06/08/19 04:11 Zofran IVP 4 mg Q6H PRN Administration Nausea/Vomiting Polyethylene Glycol 17 gm 06/09/19 04:16 06/09/19 08:33 Miralax PO 17 gm BIDPRN PRN Administration Constipation Quetiapine Fumarate 25 mg 06/03/19 11:52 06/08/19 22:10 Seroquel PO 25 mg HSPRN PRN Administration Anxiety - Exam General Appearance: NAD, awake alert Heart: RRR, no gallops, no rubs, normal peripheral pulses, II/IV Respiratory: CTAB, no wheezes, no rales, no ronchi, normal chest expansion, no tachypnea, normal percussion Gastrointestinal: soft, non-tender, non-distended, normal bowel sounds, no palpable masses, no hepatomegaly, no splenomegaly, no bruit Extremities: no cyanosis, no clubbing, no edema Skin: normal turgor Neurological: no focal deficits Musculoskeletal: normal tone Psychiatric: normal affect, normal behavior Hosp A/P (1) H1N1 influenza with pneumonia Code(s): J10.00 - FLU DUE TO OTH IDENT FLU VIRUS W UNSP TYPE OF PNEUMONIA Status: Acute (2) Severe mitral regurgitation Code(s): I34.0 - NONRHEUMATIC MITRAL (VALVE) INSUFFICIENCY Status: Acute (3) Severe tricuspid regurgitation Code(s): I07.1 - RHEUMATIC TRICUSPID INSUFFICIENCY Status: Acute (4) Acute respiratory failure with hypoxia Code(s): J96.01 - ACUTE RESPIRATORY FAILURE WITH HYPOXIA Status: Acute (5) Bacterial pneumonia Code(s): J15.9 - UNSPECIFIED BACTERIAL PNEUMONIA Status: Acute (6) Hypokalemia Code(s): E87.6 - HYPOKALEMIA Status: Acute (7) Pulmonary edema Code(s): J81.1 - CHRONIC PULMONARY EDEMA Status: Acute (8) CKD (chronic kidney disease), stage III Code(s): N18.3 - CHRONIC KIDNEY DISEASE, STAGE 3 (MODERATE) Status: Chronic (9) Lung nodule, multiple Status: Acute (10) Acute systolic CHF (congestive heart failure), NYHA class 3 Code(s): I50.21 - ACUTE SYSTOLIC (CONGESTIVE) HEART FAILURE Status: Acute - Plan Appears to be over the sx of the H1N1. Will need follow up imaging for the lung nodules. Had mild pulm edema on initial CXR and elevated BNP. ECHO with preserved EF with severe TR, MR. Appears to be much improved. Appreciate Cardiology input. ARB, BB, diuresis. BP still a little high. Will add amlodipine. Medically stable for DC, but generally deconditioned. Will need HH v rehab. CM working with family.
--- NOTE | 2019-06-09 14:25 | PQF ---
CLINICAL DOCUMENTATION IMPROVEMENT CLARIFICATION FORM: ICD-10 Updated PLEASE DO AN ADDENDUM TO THE PROGRESS NOTE WITH ANY DOCUMENTATION UPDATES OR ADDITIONS AND CARRY THROUGH TO DC SUMMARY. THANK YOU. DATE: 06/09/2019 ATTN: Dr. Henriquez Please exercise your independent, professional judgment in responding to the clarification form. Clinical indicators are provided on the bottom of this form for your review Please check appropriate box(es): [ ] Sepsis due to pneumonia. [ ] Sepsis not due to pneumonia. [ ] Sepsis due to other [ ] Severe sepsis with acute organ dysfunction of: (Examples: respiratory failure,other) [ ] Localized infection without sepsis [ ] Other diagnosis [ ] Unable to determine In addition, please specify: Present on Admission (POA): [ ] Yes [ ] No [ ] Unable to determine For continuity of documentation, please document condition throughout progress notes and discharge summary. Thank You. CLINICAL INDICATORS - SIGNS / SYMPTOMS / LABS / RESULTS AND LOCATION IN MR ER RECORD 06/03: VS: BP 209/94, Temp. 100.6, Resp. 24, Pulse 90. ER Final DX: Dyspnea Acute CHF exacerbation, sepsis H&P 06/03: In the ER, she was reported to have initial white blood cell count of 11.5 lactate of 2.8, T-max 100.6, and appropriate oxygenation on RA, but notably desaturating to high 80s while asleep and placed on oxygen nasal cannula. Assessment: Acute respiratory failure with hypoxia secondary to pneumonia and possible pulmonary edema PN 06/08: H1N1 influenza with pneumonia. Bacterial pneumonia. acute systolic chf. acute. RISKS: PN 06/04: Acute respiratory failure with hypoxia. Bacterial pneumonia. Acute pulmonary edema. CKD 3. PN 06/08: H1N1 influenza with pneumonia. TREATMENT: Order 06/03-06/05: Rocephin 1 gm IV q 24 hr MAR: 06/05 Levaquin 500mg po Thank you, Alley (This form is maintained as a part of the permanent medical record) 2014 [employer]. All Rights Reserved Alley Stewart RN, BSN [email or web address] Office: [phone] [facility]
[2019-06-09 15:29] VITALS: BP 142/69; TEMP 98.4
--- NOTE | 2019-06-14 14:59 | EKG ---
Test Reason : EPIGASTRIC PAIN Blood Pressure : / mmHG Vent. Rate : 092 BPM Atrial Rate : 092 BPM P-R Int : 132 ms QRS Dur : 082 ms QT Int : 310 ms P-R-T Axes : 045 -31 118 degrees QTc Int : 383 ms Sinus rhythm with occasional Premature ventricular complexes Possible Left atrial enlargement Left axis deviation Left ventricular hypertrophy with repolarization abnormality Abnormal ECG Confirmed by ADRIAN BUTCHER ([id number]), news video editor MARK FUNES ([id number]) on 06/14/2019 2:59:21 PM Referred By: Confirmed By:ADRIAN BUTCHER
== END 2019-06-09 17:28 | disposition home or self-care (01) | DRG 193 ==
LOC: ERS 03:31 → 2NO 06:38
PROVIDERS: ADMIT Emergency Medicine; ATTEND Hospitalist
DX: J10.08 Influenza due to other identified influenza virus with other specified pneumonia (principal); J96.01 Acute respiratory failure with hypoxia; I50.21 Acute systolic (congestive) heart failure; I13.0 Hypertensive heart and chronic kidney disease with heart failure and stage 1 through stage 4 chronic kidney disease, or unspecified chronic kidney disease; E87.2 Acidosis; J15.9 Unspecified bacterial pneumonia; E66.01 Morbid (severe) obesity due to excess calories; F17.200 Nicotine dependence, unspecified, uncomplicated; E87.6 Hypokalemia; F32.9 Major depressive disorder, single episode, unspecified; E11.22 Type 2 diabetes mellitus with diabetic chronic kidney disease; N18.3 Chronic kidney disease, stage 3 (moderate); I08.1 Rheumatic disorders of both mitral and tricuspid valves; R91.1 Solitary pulmonary nodule; F41.9 Anxiety disorder, unspecified; Z79.4 Long term (current) use of insulin; Z90.710 Acquired absence of both cervix and uterus; Z90.49 Acquired absence of other specified parts of digestive tract; Z68.38 Body mass index [BMI] 38.0-38.9, adult
CPT/HCPCS: 36415; 36416; 51701; 71045; 71260; 80048; 80053; 81003; 81015; 83605; 83880; 84484; 85007; 85025; 85027; 87040; 87804; 93005; 93306; 93798; 94640; 96365; 96367; 96375; A4353; J0456; J0696; J1650; J1940; J2405; J3490; J7620; Q0163; Q9967

== ENCOUNTER 2020-05-11 13:34 | Outpatient (CLI) | payer MEDICARE ==
--- NOTE | 2020-05-11 15:23 | CT ---
CT CHEST WITHOUT CONTRAST CLINICAL INDICATION: Follow-up pulmonary nodules COMPARISON: CT thorax with IV contrast ON 06/05/2019 FINDINGS: Aorta: Vascular structures are limited without IV contrast. Vascular calcifications are seen in the t horacic aorta as well as involving the coronary arteries. Lungs: Interval resolution of previously seen parenchymal airspace densities and consolidation in eac h lower lobe as well as resolution of the patchy parenchymal densities in each upper lobe, and findings are likely related to resolution of bilateral pneumonia. The previously described pulmonary nodules in the lingula are again seen previously measuring 2.9 cm and 1.2 cm with measurements on today's exam of 2.7 cm and 1.5 cm respectively. An approximately 4 mm pulmonary nodule is seen at the posterior left lung base. No pulmonary nodule or mass is seen on the right. A few linear densities at each lung base probably due to residual atelectasis and/or mild scarring. No filling defects are seen in the large airways. Mediastinum: The heart is mildly enlarged. The previously described prominent pretracheal lymph node on prior study measured approximately 10 mm and now measures 9 mm in short axis dimension. Few mildly prominent prevascular space lymph nodes and left tracheobronchial lymph node are also again se en but smaller in size compared to pretracheal lymph node. Thyroid gland: Grossly normal nonenhanced CT appearance. Osseous structures: Multilevel degenerative changes throughout the thoracic spine and visualized lumb ar spine. Chest wall: A 2.1 cm hypodense cystic appearing lesion is incompletely imaged involving the posterior soft tissues at the level of the lower cervical spine. This is just at the skin surface and may potentially represent a sebaceous cyst. This is partially seen on prior exam but slightly larger in s ize. Upper abdomen: Left adrenal nodule is again seen which measures approximately 2.2 cm. Attenuation mike fficient on nonenhanced CT imaging is not compatible with an adrenal adenoma. Postoperative changes related to right nephrectomy and adrenalectomy are noted with postoperative changes related to cholec ystectomy. Colonic diverticulosis is seen. Small hiatal hernia is present. IMPRESSION: 1. Persistent pulmonary nodules in the lingula. Given persistence of these findings, neoplastic proce ss cannot be excluded. PET CT examination is recommended for further evaluation. 2. Mildly prominent mediastinal lymph nodes similar to prior exam. 3. Left adrenal nodule not significantly changed in size. This nodule is not able to be characterized as an adrenal adenoma based on noncontrast attenuation coefficient. CT abdomen following adrenal mass protocol is suggested for further evaluation. However, this adrenal nodule could also be evaluat ed on PET CT scan exam. 4. Mild cardiomegaly. 5. Postoperative changes upper abdomen.
== END 2020-05-11 13:35 | disposition home or self-care (01) ==
LOC: BICCT 13:34
PROVIDERS: ATTEND Internal Medicine Cardiovascular Disease
DX: R91.8 Other nonspecific abnormal finding of lung field (principal); E27.8 Other specified disorders of adrenal gland; I51.7 Cardiomegaly; Z98.890 Other specified postprocedural states
CPT/HCPCS: 71250

== ENCOUNTER 2020-12-05 01:25 | Emergency (ER) | payer MEDICARE ==
[2020-12-05 04:51] LABS: #Basophils 0.1 thou/uL (0.0-0.2); #Eosinphils 0.2 thou/uL (0.0-0.7); #Lymphocytes 2.1 thou/uL (1.20-3.40); #Monocytes 0.7 thou/uL (0.11-0.59); #Neutrophils 4.8 thou/uL (1.40-6.50); %Eosinophils 2.8 % (0.0-10.0); %Lymphocytes 26.5 % (21.0-51.0); %Monocytes 8.9 % (0.0-10.0); %Neutrophils 60.9 % (42.0-75.0); Hemoglobin 15.4 g/dL (12.0-16.0); Mean Corpuscular HGB CONC 30.6 g/dL (32.0-36.0); Mean Corpuscular Hemoglobin 27.2 pg (27.0-31.0); Mean Corpuscular Volume 88.9 fL (78.0-98.0); Platelet Count 181 thou/uL (130-400); RBC Distribution Width 14.1 % (11.5-14.5); Red Blood Cell (RBC) Count 5.65 mill/uL (4.20-5.40); White Blood Cell (WBC) Count 7.9 thou/uL (4.8-10.8)
[2020-12-05 05:18] LABS: ALT (SGPT) 9 U/L (8-55); AST (SGOT) 21 U/L (5-34); Albumin 3.8 g/dL (3.4-4.8); Alkaline Phosphatase 123 U/L (40-110); Anion Gap 17 mmol/L (10-20); BUN (Urea Nitrogen) 22 mg/dL (9.8-20.1); Bilirubin, Total 0.5 mg/dL (0.2-1.2); Calc. Creatinine Clearance 0 mL/min (70-130); Calcium 9.7 mg/dL (7.8-10.44); Carbon Dioxide 21 mmol/L (23-31); Chloride 108 mmol/L (98-107); Globulin 5.4 g/dL (2.4-3.5); Glucose 120 mg/dL (83-110); Potassium 4.6 mmol/L (3.5-5.1); Protein, Total 9.2 g/dL (5.8-8.1); Sodium 141 mmol/L (136-145)
== END 2020-12-05 06:24 | disposition home or self-care (01) ==
LOC: ERS 01:25
DX: S46.911A Strain of unspecified muscle, fascia and tendon at shoulder and upper arm level, right arm, initial encounter (principal); I11.0 Hypertensive heart disease with heart failure; I50.9 Heart failure, unspecified; E03.9 Hypothyroidism, unspecified; M10.9 Gout, unspecified; F17.210 Nicotine dependence, cigarettes, uncomplicated; Z79.899 Other long term (current) drug therapy; X58.XXXA Exposure to other specified factors, initial encounter
CPT/HCPCS: 36415; 71045; 80053; 83880; 84484; 85025; 93005

== ENCOUNTER 2021-04-04 06:40 | Emergency (ER) | payer MEDICARE, SELFPAY ==
[2021-04-04 07:21] LABS: #Eosinphils 0.1 thou/uL (0.0-0.7); #Lymphocytes 1.3 thou/uL (1.20-3.40); #Monocytes 0.5 thou/uL (0.11-0.59); #Neutrophils 6.1 thou/uL (1.40-6.50); %Basophils 0.4 % (0.0-1.0); %Eosinophils 0.8 % (0.0-10.0); %Lymphocytes 16.1 % (21.0-51.0); %Monocytes 6.4 % (0.0-10.0); %Neutrophils 76.3 % (42.0-75.0); Hemoglobin 14.2 g/dL (12.0-16.0); Mean Corpuscular HGB CONC 32.3 g/dL (32.0-36.0); Mean Corpuscular Hemoglobin 28.7 pg (27.0-31.0); Mean Corpuscular Volume 88.8 fL (78.0-98.0); Mean Platelet Volume 11.2 fL (7.4-10.4); Platelet Count 130 thou/uL (130-400); RBC Distribution Width 13.3 % (11.5-14.5); Red Blood Cell (RBC) Count 4.93 mill/uL (4.20-5.40)
[2021-04-04 07:35] LABS: INR-International Normal Ratio 1.1; PTT 26.9 sec (22.9-36.1); Prothrombin Time 13.9 sec (12.0-14.7)
[2021-04-04 07:40] LABS: ALT (SGPT) 8 U/L (8-55); AST (SGOT) 12 U/L (5-34); Albumin 3.1 g/dL (3.4-4.8); Alkaline Phosphatase 105 U/L (40-110); Anion Gap 15 mmol/L (10-20); BUN (Urea Nitrogen) 16 mg/dL (9.8-20.1); Bilirubin, Total 0.6 mg/dL (0.2-1.2); Calc. Creatinine Clearance 0 mL/min (70-130); Calcium 8.8 mg/dL (7.8-10.44); Carbon Dioxide 20 mmol/L (23-31); Chloride 106 mmol/L (98-107); Globulin 4.1 g/dL (2.4-3.5); Glucose 139 mg/dL (83-110); Potassium 4.2 mmol/L (3.5-5.1); Protein, Total 7.2 g/dL (5.8-8.1); Sodium 137 mmol/L (136-145)
[2021-04-04] MEDS ORDERED: Iopamidol-370 76% 500 ML 1 ML ONE ×2 (10:28)
== END 2021-04-04 09:02 | disposition short-term general hospital (02) ==
LOC: ERS 06:40
DX: I66.01 Occlusion and stenosis of right middle cerebral artery (principal); I11.0 Hypertensive heart disease with heart failure; I50.9 Heart failure, unspecified; E03.9 Hypothyroidism, unspecified; F17.210 Nicotine dependence, cigarettes, uncomplicated; Z79.899 Other long term (current) drug therapy
CPT/HCPCS: 0042T; 36416; 70450; 70496; 70498; 71045; 80053; 84484; 85025; 85610; 85730; 93005; Q9967